=== PATIENT | female | born 1980 | race Caucasian/White ===

== ENCOUNTER 2017-05-11 23:39 | Inpatient (IN) | payer OTHER ==
[2017-05-12 00:30] VITALS: BMI 31.9
[2017-05-12] MEDS ORDERED: Lactated Ringer's 1,000 ML IV SCH (00:30)
[2017-05-12] MEDS: Lactated Ringer's 1,000 ML IV SCH ×2 (00:30→02:42)
--- NOTE | 2017-05-12 00:37 | OBHP ---
Datetime: 05/12/2017 00:37 Admit Comment, IP Provider: Patient is a 36-year-old female 2 para 1 EDC 927 by LMP and 13 w [facility] ultrasound who presents at 39.5 weeks with complaints of contractions and spontaneous rupture of membranes since 10 PM she denies decreased movement. her OB history is significant for advanced maternal age and history of endocervical polyps with current . Past medical history: Denies Past surgical history denies Past OB history spontaneous vaginal delivery at 28 week No known drug allergies Medications vitamins Social history denies tobacco alcohol or drug use I: 39.5 weeks P: Admit for expected vaginal delivery Begin penicillin G Epidural anesthesia offered patient declining of present Datetime: 05/12/2017 00:21 IP Adm Impression: Term, intrauterine IP Admit Plan: Admit to unit FHR - Baseline A Provider: 140 Membranes, Provider: Ruptured Contraction Comments Provider: 2-3 Comments, ACOG Physical Exam: O+; hep B negative; HIV and RPR negative 2; rubella immune; GBS pos itive Vital Signs Provider: Within Normal Limits IP Chief Complaint: Uterine contractions NICHD Variability Prov Fetus A: Moderate 6-25bpm NICHD Decel Fetus A IP Provider: Early Dilatation, Provider: 7 Effacement, Provider: 80 Station, Provider: -1
--- NOTE | 2017-05-12 00:40 | OBADHP ---
Datetime: 05/12/2017 00:37 Admit Comment, IP Provider: Patient is a 36-year-old female 2 para 1 EDC 927 by LMP and 13 w [place] ultrasound who presents at 39.5 weeks with complaints of contractions and spontaneous rupture of membranes since 10 PM she denies decreased movement. her OB history is significant for advanced maternal age and history of endocervical polyps with current . Past medical history: Denies Past surgical history denies Past OB history spontaneous vaginal delivery at 28 week No known drug allergies Medications vitamins Social history denies tobacco alcohol or drug use I: 39.5 weeks P: Admit for expected vaginal delivery Begin penicillin G Epidural anesthesia offered patient declining of present Datetime: 05/12/2017 00:21 FHR - Baseline A Provider: 140 Membranes, Provider: Ruptured Contraction Comments Provider: 2-3 Comments, ACOG Physical Exam: O+; hep B negative; HIV and RPR negative 2; rubella immune; GBS pos itive Vital Signs Provider: Within Normal Limits IP Chief Complaint: Uterine contractions NICHD Variability Prov Fetus A: Moderate 6-25bpm NICHD Decel Fetus A IP Provider: Early Dilatation, Provider: 7 Effacement, Provider: 80 Station, Provider: -1 IP Adm Impression: Term, intrauterine IP Admit Plan: Admit to unit
[2017-05-12] MEDS ORDERED: Penicillin G 5 Million Unit Vial IVPB ONE (00:41)
[2017-05-12 00:50] LABS: BASO % 0.2 % (0.0-2.0); EOS # 0.1 K/uL (0.0-0.7); EOS % 0.4 % (0.0-4.0); HEMATOCRIT 39.2 % (34.0-47.0); LYMPH # 2.4 K/uL (1.0-4.3); LYMPH % 18.8 % (20.0-40.0); MEAN CELL VOLUME 96.4 fl (81.0-99.0); MEAN CORPUSCULAR HEMOGLOBIN 32.3 pg (27.0-31.0); MEAN CORPUSCULAR HGB CONC 33.5 g/dL (33.0-37.0); MEAN PLATELET VOLUME 8.4 fl (7.2-11.7); MONO # 1.1 K/uL (0.0-0.8); MONO % 8.8 % (0.0-10.0); NEUT # 9.2 K/uL (1.8-7.0); NEUT % 71.8 % (50.0-75.0); NRBC % 0.3 % (0.0-0.0); WHITE BLOOD COUNT 12.8 K/uL (4.8-10.8)
[2017-05-12] MEDS ORDERED: Oxytocin 30 units/LR 500ML 30 U/500 ML BAG IV ONE (01:33)
[2017-05-12] MEDS ORDERED: Lidocaine 1% Inj (20ml) ONE (01:40)
[2017-05-12] MEDS ORDERED: Benzocaine/Menthol SPRAY TOP PRN (02:16)
[2017-05-12] MEDS ORDERED: Oxycodone/Acetaminophen 5/325 mg Tab PO PRN ×3 (02:16→02:44)
--- NOTE | 2017-05-12 02:29 | OBDS ---
DELIVERY PERSONNEL Delivery Doctor: Aimee Gonzalez MD Elevator Troubleshooter: RodrigoNneka gordon RN MATERNAL INFORMATION Delivery Anesthesia: Local Medications in Delivery: Piotocin 30mu/500 mL, Lidocaine 1% Estimated Blood Loss (ml): 350 Placenta Cultured: No Maternal Complications: Precipitous Labor (<3hrs) Provider Comments: Delivery Note ap dx39.6wks; labor pp dx: same proced: ; repair of 2nd degree lacer ob:orossetos anesth: 1% local lidocaine ebl 350cc neon remained in br w/ mother LABOR SUMMARY EDC: 05/13/2017 00:00 No. Babies in Womb: 1 Attempted: No Labor Anesthesia: None LABOR INFORMATION Reason for Induction: Not Applicable Onset of Labor: 05/11/2017 22:00 Oxytocin: N/A Group B Beta Strep: Positive (Annotations: Data stored by N on behalf of user) Antibiotics # of Doses: 1 Antibiotics Time of Last Dose: 0045 Steroids Given: None Reason Steroids Not Administered: Not Applicable MEMBRANES Membranes Rupture Method: Spontaneous Rupture of Membranes: 05/11/2017 17:00 Amniotic Fluid Color: Clear Amniotic Fluid Amount: Small Amniotic Fluid Odor: Normal VAGINAL DELIVERY Episiotomy: None Laceration Extension: Second Degree Laceration Type: Perineal Laceration Repair: Yes Laceration Repair Note: repair of 2nd degree lacer with 3-0 vicryl_ 2-0 vicryl Sponge Count Correct: Yes
[2017-05-12] MEDS: Benzocaine/Menthol SPRAY TOP PRN (04:06)
[2017-05-12] MEDS: Oxycodone/Acetaminophen 5/325 mg Tab PO PRN (14:01)
[2017-05-13 06:32] LABS: HEMATOCRIT 33.4 % (34.0-47.0); MEAN CELL VOLUME 96.6 fl (81.0-99.0); MEAN CORPUSCULAR HEMOGLOBIN 32.8 pg (27.0-31.0); RED CELL DISTRIBUTION WIDTH 14.2 % (11.5-14.5); WHITE BLOOD COUNT 14.8 K/uL (4.8-10.8)
--- NOTE | 2017-05-13 10:47 | OBPPN ---
Datetime: 05/13/2017 09:15 PP Pain Prov: Within normal limits PP Nausea Prov: Denies PP Flatus Prov: Yes PP BM Prov: Yes PP Breasts Prov: Not Done PP Heart Prov: Normal PP Lungs Prov: Normal PP Abdomen/Uterus Prov: Normal PP Lochia Prov: Normal PP Vulva/Perineum Prov: Not Done PP CVA Tenderness Prov: Normal PP Extremities Prov: Normal PP C/S Incision Prov: Not Applicable PP Progress Prov: Normal PP Comments Phys Exam Prov: Uticaria noted bilateral nape of neck extending towards shoulders. Presc ribed Benadryl PP Impression Prov: Normal progression PP Plan Prov: Continue present management PP Progress Note Prov: 36 yo s/p NVD on 05/12/2017 at 01:27; pt is seen and examined at bedside this AM. no overnight events. pt reports occasional abdo pain, but well controlled with meds. Pt is ambulating without any difficulties. Breast feeds baby. Tolerating PO diet. lochia is similar to lig ht menses in volume; has been able to Void freely, bowel movement and passing gas per rectum. denies fever, chills, diarrhea, nausea, vomiting, chest pain, dyspnea, or dizziness. O: VS: stable GEN: nad Cardio: S1S2 no M/G/R Resp: clear breathsounds b/l Abdo: BS+, NT, uterus is firm and at level of umbilicus Ext: no pitting edema noted neuro: AAOx3 A/P: 36 yo s/p NVD on 05/12/2017 at 01:27. Pt remains afebrile, tolerating pain with meds, Do ing well on PPD1. OOB with caution Ambulating Benadryl for uticaria Ibuprofen 600 mg for pain Senokot 17.2 mg for constipation encouraged and ambulating f/u CBC today anticipated d/c to home, tomorrow 05/14/2017; (pt request to stay until tomorrow). PJ PGY1 The patient was seen with the resident and I agree with the note IP PP Procedures: None Vital Signs Provider PP: Reviewed; Within Normal Limits
[2017-05-13] MEDS: Benzocaine/Menthol SPRAY TOP PRN (22:25)
[2017-05-14] MEDS: Oxycodone/Acetaminophen 5/325 mg Tab PO PRN (09:20)
--- NOTE | 2017-05-14 10:25 | OBPPN ---
Datetime: 05/14/2017 07:02 PP Pain Prov: Within normal limits PP Nausea Prov: Denies PP Flatus Prov: Yes PP BM Prov: Yes PP Breasts Prov: Not Done PP Heart Prov: Normal PP Lungs Prov: Normal PP Abdomen/Uterus Prov: Normal PP Lochia Prov: Normal PP Vulva/Perineum Prov: Not Done PP CVA Tenderness Prov: Normal PP Extremities Prov: Normal PP C/S Incision Prov: Not Applicable PP Progress Prov: Normal PP Impression Prov: Normal progression PP Plan Prov: Discharge PP Progress Note Prov: 36 yo s/p NVD on 05/12/2017 at 01:27; pt is seen and examined at bedside this AM. no overnight events. pt reports occasional abdo pain, but well controlled with meds. Pt is ambulating without any difficulties. Breast feeds baby. Tolerating PO diet. lochia is similar to lig ht menses in volume; has been able to Void freely, bowel movement and passing gas per rectum. denies fever, chills, diarrhea, nausea, vomiting, chest pain, dyspnea, or dizziness. Patient's uticaria sym ptoms significantly improved. O: VS: stable GEN: nad Cardio: S1S2 no M/G/R Resp: clear breath sounds b/l Abdo: BS+, NT, uterus is firm and at level of umbilicus Ext: no pitting edema noted neuro: AAOx3 A/P: 36 yo s/p NVD on 05/12/2017 at 01:27. Pt remains afebrile, tolerating pain with meds, Doing well on PPD2. OOB with caution Ambulating Ibuprofen 600 mg for pain Senokot 17.2 mg for constipation encouraged and ambulating f/u CBC today 11.3/33.4 anticipated d/c to home, today 05/14/2017. PJ PGY1 OBH addendum: Please seen and examined by me. Agree with above assessment with following modifications. Subjective: Patient complains of neck rash which she developed shortly following the delivery. She states it. It has been relieved with application of cream. She denies ever having taken Motrin prior to hospitalization for current delivery. She complains of back disc and decreased milk production an d requests whether supplementation with vitamin is possible. Impression: Questionable allergy to Motrin patient with neck rash Concern for Second-degree laceration and repair Plan: Patient advised that her rash may be due to Motrin allergy advised discontinuation of the medicati on. Rx hydrocortisone Patient may take Tylenol for perineal pain and uterine cramping. Patient advised to eat a low carbohydrate high fat diet to increase . Fenureek supplement to assist in . Sitz bath discussed with patient. IP PP Procedures: None Vital Signs Provider PP: Reviewed; Within Normal Limits
--- NOTE | 2017-05-14 10:27 | OBDCSUM ---
Datetime: 05/14/2017 07:06 Discharged to, Provider: Home Follow up at, Provider: Amado Stone Instr Activity: Normal activity; May be up to bathroom; May be up for meals; May Shower Disch Instr Diet: Regular Discharge Instructions, Provider: Routine instructions given Discharge Diagnosis, Provider: Term Delivered Discharge Time: 05/14/2017 11:30 Follow up in weeks, Provider: in 4 to 6 weeks Disch Referrals: None Contraception discussed, Prov: Yes Disch Activity Restrictions: No sexual activity; Nothing in vagina - [place], tampons, douche Discharge Comment, Provider: Discharge Summary DOA: 05/12/2017 EGA: 39.5 Diagnosis: NVD Term PRisk factors: AMA summary of : 36 yo F L_D summary DOL: 05/12/2017 at 01:27 NVD NB: F : 9/9 Weight: 3850g PP summary No serious complications during PP. Lochia= menses, mild pain, controlled with medications Rubella immune, Tdap 03/2017 Blood type: O+ CBC pp: 11.3/33.4 Discharge Date: 05/14/2017 Time 10:00 AM Discharge Instructions: -encourage -percocet/Ibuprofen for pain PRN -Ambulate as tolerated -f/u NB visit and PP visit --- Bertin Ackerman, PGY-1 Impression: Questionable allergy to Motrin patient with neck rash Concern for Second-degree laceration and repair Plan: Patient advised that her rash may be due to Motrin allergy advised discontinuation of the medicati on. Rx hydrocortisone Patient may take Tylenol for perineal pain and uterine cramping. Patient advised to eat a low carbohydrate high fat diet to increase . Fenureek supplement to assist in . Sitz bath discussed with patient. Contraception after Delivery: Foam/Condoms
[2017-05-14 22:21] VITALS: BP 117/69; PULSE 80; RESP 20; TEMP 98.2; O2SAT 99
== END 2017-05-14 16:15 | disposition home or self-care (01) | DRG 373 ==
LOC: H.EROB2 23:39 → H.L&D 05-12 00:25 → H.OB/GYN 05-12 03:25
PROVIDERS: ADMIT Obstetrics & Gynecology; ATTEND Obstetrics & Gynecology
PROC: 10E0XZZ Delivery of Products of Conception, External Approach (ICD-10-PCS; principal; 2017-05-12)
PROC: 0KQM0ZZ Repair Perineum Muscle, Open Approach (ICD-10-PCS; 2017-05-12)
PROC: 4A1HXCZ Monitoring of Products of Conception, Cardiac Rate, External Approach (ICD-10-PCS; 2017-05-12)
DX: O62.3 Precipitate labor (principal); O70.1 Second degree perineal laceration during delivery; Z37.0 Single live birth; Z3A.39 39 weeks gestation of pregnancy